=== PATIENT | male | born 1980 | race Caucasian/White ===

== ENCOUNTER → 2017-06-20 | Outpatient (CLI) | payer MEDICAID | LOC: BRMIMAGING 08:58 | PROVIDERS: ATTEND Registered Nurse | DX: M75.91 Shoulder lesion, unspecified, right shoulder (principal) | CPT/HCPCS: 73030-PO ==

== ENCOUNTER → 2017-07-10 | Outpatient (CLI) | payer MEDICAID ==
[~2017-07-10] MED LIST: BUPIVACAINE 0.25% 30 ML SDV ONE; DEPO METHYLPREDNISOLONE 40 MG/ML SDV ONE; LIDOCAINE 1% 300 MG/30 ML SDV ONE
== END ==
LOC: FIMAGING 10:32
PROVIDERS: ATTEND Radiology Diagnostic Radiology
PROC: 3E023BZ Introduction of Anesthetic Agent into Muscle, Percutaneous Approach (ICD-10-PCS; principal; 2017-07-10)
PROC: 3E0233Z Introduction of Anti-inflammatory into Muscle, Percutaneous Approach (ICD-10-PCS; principal; 2017-07-10)
DX: M65.221 Calcific tendinitis, right upper arm (principal)
CPT/HCPCS: J1030